=== PATIENT | female | born 1935 | race Caucasian/White ===

== ENCOUNTER → 2016-12-22 | Outpatient (CLI) | payer MEDICARE, OTHER | LOC: MW.CHIM 08:00 | PROVIDERS: ATTEND Internal Medicine | DX: E11.9 Type 2 diabetes mellitus without complications (principal); E03.9 Hypothyroidism, unspecified; E78.5 Hyperlipidemia, unspecified; E66.9 Obesity, unspecified | CPT/HCPCS: 99214 ==

== ENCOUNTER 2018-01-17 11:22 | Emergency (ER) | payer MEDICARE, BC ==
--- NOTE | 2018-01-17 12:07 | EDM.PDOC ---
ED HPI GENERAL MEDICAL PROBLEM - General Chief Complaint: Lower Extremity Injury/Pain Stated Complaint: BACK PAIN Time Seen by Provider: 01/17/18 11:23 Source of Information: Reports: Patient History Limitations: Reports: No Limitations - History of Present Illness INITIAL COMMENTS - FREE TEXT/NARRATIVE: HISTORY AND PHYSICAL: History of present illness: Patient is a 82-year-old female who presents to the emergency room today with complaints of left hip pain. She states she was walking when she twisted her leg wrong and felt pain to the left lateral hip. She has no previous fracture, injury or trauma of the extremity. This did not result in any fall. She has been able to ambulate but with the assistance of a cane, which she previously hadn't needed to use. She denies any numbness, tingling to the affected extremity. Review of systems: As per history of present illness and below otherwise all systems reviewed and negative. Past medical history: As per history of present illness and as reviewed below otherwise noncontributory. Surgical history: As per history of present illness and as reviewed below otherwise noncontributory. Social history: No reported history of drug or alcohol abuse. Family history: As per history of present illness and as reviewed below otherwise noncontributory. Physical exam: General: Well-developed and well-nourished 82-year-old female. Alert and oriented. Nontoxic appearing and in no acute distress. HEENT: Atraumatic, normocephalic, pupils equal and reactive bilaterally, negative for conjunctival pallor or scleral icterus, mucous membranes moist, throat clear, neck supple, nontender, trachea midline. No drooling or trismus noted. No meningeal signs Lungs: Clear to auscultation, breath sounds equal bilaterally, chest nontender. Heart: S1S2, regular rate and rhythm without overt murmur Abdomen: Soft, nondistended, nontender. Negative for masses or hepatosplenomegaly. Negative for costovertebral tenderness. Pelvis: Stable nontender. Genitourinary: Deferred. Rectal: Deferred. Skin: Intact, warm, dry. No lesions or rashes noted. Extremities: Atraumatic, all extremities per self without difficulty or deficits. No rotation or shortening noted to the affected extremity. Strong pedal pulses bilaterally. She is nontender with palpation, negative for cords or calf pain. Neurovascular unremarkable. Neuro: Awake, alert, oriented. Cranial nerves II through XII unremarkable. Cerebellum unremarkable. Motor and sensory unremarkable throughout. Exam nonfocal. Notes: X-ray shows mild to moderate degenerative changes without acute abnormality. We discussed supportive care measures. Encouraged her to follow-up with the orthopedic provider for further evaluation and monitoring. She voices understanding and is agreeable to plan of care. She denies any further questions at this time. Diagnostics: Left hip x-ray/pelvis Therapeutics: [] Impression: Left hip pain Plan: 1. Rest, ice, elevate the affected extremity. 2. Tylenol and ibuprofen as needed for pain management. You may continue to use your cane for comfort. 3. Follow-up with Dr. Finn the orthopedic provider within the next week. Return to the ED as needed and as discussed. Definitive disposition and diagnosis as appropriate pending reevaluation and review of above. Left Hip Pain Score (Numeric/FACES): 5 - Related Data Allergies Allergy/AdvReac Type Severity Reaction Status Date / Time No Known Allergies Allergy Verified 01/17/18 11:35 Home Meds: Home Meds ALPRAZolam [Alprazolam ER] 0.5 mg PO DAILY PRN 01/17/18 [History] Levothyroxine [Synthroid] 100 mcg PO DAILY 01/17/18 [History] amLODIPine Besylate/Benazepril [Amlodipine-Benazepril 5-10 MG] 1 tab PO DAILY [History] atorvaSTATin [Lipitor] 20 mg PO DAILY 01/17/18 [History] metFORMIN [Glucophage XR] 500 mg PO DAILY 01/17/18 [History] Past Medical History Cardiovascular History: Reports: High Cholesterol, Hypertension Endocrine/Metabolic History: Reports: Diabetes, Type II Oncologic (Cancer) History: Reports: Breast - Infectious Disease History Infectious Disease History: Reports: Chicken Pox, Measles, Mumps - Past Surgical History Female Surgical History: Reports: Hysterectomy Oncologic Surgical History: Reports: Lumpectomy Social & Family History - Family History Family Medical History: Noncontributory - Tobacco Use Smoking Status *Q: Never Smoker - Recreational Drug Use Recreational Drug Use: No Review of Systems - Review of Systems Review Of Systems: ROS reveals no pertinent complaints other than HPI. ED EXAM, GENERAL - Physical Exam Exam: See Below (See dictation) Course - Vital Signs Last Recorded V/S: Last Vital Signs Temp 97.4 F 01/17/18 11:32 Pulse 93 01/17/18 11:32 Resp 18 01/17/18 11:32 BP 144/78 H 01/17/18 11:32 Pulse Ox 93 L 01/17/18 11:32 Departure - Departure Time of Disposition: 12:39 Disposition: Home, Self-Care 01 Clinical Impression: Hip pain, left - Discharge Information Referrals: Billy Santos MD [Primary Care Provider] - Forms: ED Department Discharge Additional Instructions: The following information is given to patients seen in the emergency department who are being discharged to home. This information is to outline your options for follow-up care. We provide all patients seen in our emergency department with a follow-up referral. The need for follow-up, as well as the timing and circumstances, are variable depending upon the specifics of your emergency department visit. If you don't have a primary care physician on staff, we will provide you with a referral. We always advise you to contact your personal physician following an emergency department visit to inform them of the circumstance of the visit and for follow-up with them and/or the need for any referrals to a consulting specialist. The emergency department will also refer you to a specialist when appropriate. This referral assures that you have the opportunity for follow-up care with a specialist. All of these measure are taken in an effort to provide you with optimal care, which includes your follow-up. Under all circumstances we always encourage you to contact your private physician who remains a resource for coordinating your care. When calling for follow-up care, please make the office aware that this follow-up is from your recent emergency room visit. If for any reason you are refused follow-up, please contact the [facility] Emergency Department at and asked to speak to the emergency department charge nurse. [facility] [address], [address] [place] [address] 1. Rest, ice, elevate the affected extremity. 2. Tylenol and ibuprofen as needed for pain management. You may continue to use your cane for comfort. 3. Follow-up with Dr. Finn the orthopedic provider within the next week. Return to the ED as needed and as discussed.
--- NOTE | 2018-01-17 12:29 | CR ---
EXAMINATION: Pelvis and left hip HISTORY: Pain COMPARISON: None TECHNIQUE: AP pelvis and 2 views of the left hip FINDINGS: There is no acute osseous abnormality, dislocation, or fracture. Mild subchondral sclerosis noted alfonso aterally with early subchondral cystic change. Moderate osteophyte formation noted within the left hi p. Iliopectineal lines are intact. SI joints are symmetric. Bone mineralization is otherwise normal. IMPRESSION: 1. Mild to moderate degenerative changes noted within the left hip without acute osseous abnormality.
== END 2018-01-17 12:53 | disposition home or self-care (01) ==
LOC: MW.ED 11:22
DX: M25.552 Pain in left hip (principal); E78.00 Pure hypercholesterolemia, unspecified; I10 Essential (primary) hypertension; Z79.899 Other long term (current) drug therapy; Z79.84 Long term (current) use of oral hypoglycemic drugs
CPT/HCPCS: 73502-26-LT; 73502-LT; 99282; 99283